=== PATIENT | male | born 1950 | race Caucasian/White ===

== ENCOUNTER 2017-08-15 21:19 | Emergency (ER) | payer MEDICARE ==
[2017-08-16] MEDS: DOXYCYCLINE HYCLATE 100 MG TAB PO (02:22)
== END 2017-08-16 02:33 | disposition home or self-care (01) ==
LOC: M ED 21:19
DX: J18.1 Lobar pneumonia, unspecified organism (principal); E11.9 Type 2 diabetes mellitus without complications; I10 Essential (primary) hypertension; E78.5 Hyperlipidemia, unspecified; G47.30 Sleep apnea, unspecified; K21.9 Gastro-esophageal reflux disease without esophagitis; F32.9 Major depressive disorder, single episode, unspecified; Z79.899 Other long term (current) drug therapy
CPT/HCPCS: 71046

== ENCOUNTER 2018-08-17 13:28 | Emergency (ER) | payer OTHER, MEDICARE ==
[~2018-08-17] VITALS: Ht 162.6 cm; Wt 106.8 kg
[~2018-08-17 13:28] MED LIST: DICY10CA13 PO; DOXY100C37 PO
--- NOTE | 2018-08-17 15:14 | REP ---
Clinical: Cough . Comparison: 08/16/2017 . Technique: PA and lateral. Findings: The mediastinum and cardiac silhouette are normal. The lung walker are clear and without acute consolidation, effusion, or pneumothorax. The skeletal structures are intact and normal. Impression: 1. No acute cardiopulmonary process. Electronically Signed by Toby Del Valle MD 08/17/2018 03:05 P
[2018-08-17] MEDS ORDERED: OMEP20CA3 PO (15:43)
[2018-08-17] MEDS ORDERED: BACI500O8 TOP (15:43)
[2018-08-17] MEDS ORDERED: ASPI1TAB PO (15:43)
[2018-08-17] MEDS ORDERED: LISI-542 PO (15:43)
[2018-08-17] MEDS ORDERED: AQUA10CR TOP (15:43)
[2018-08-17] MEDS ORDERED: CLOB0.0526 TOP (15:43)
[2018-08-17] MEDS ORDERED: METF10004 PO (15:43)
[2018-08-17] MEDS ORDERED: METO1TAB87 PO (15:43)
[2018-08-17] MEDS ORDERED: GLIP5TAB8 PO (15:43)
[2018-08-17] MEDS ORDERED: NAPR-885 PO (15:43)
[2018-08-17] MEDS ORDERED: FISH1000 PO (15:43)
[2018-08-17] MEDS ORDERED: GENT0.1C2 TOP (15:43)
[2018-08-17] MEDS ORDERED: TERA5CAP3 PO (15:43)
[2018-08-17] MEDS ORDERED: TRAZ-163 PO (15:43)
[2018-08-17] MEDS ORDERED: HYDR25TAB PO (15:43)
[2018-08-17] MEDS ORDERED: DRIS50003 PO (15:43)
[2018-08-17] MEDS ORDERED: TERB1CRE12 TOP (15:43)
[2018-08-17] MEDS ORDERED: ROSU40TA3 PO (15:43)
[2018-08-17] MEDS ORDERED: LORA-243 PO (15:43)
[2018-08-17 16:07] LABS: INFLUENZA A AMPLIFICATION POSITIVE (NEGATIVE); INFLUENZA B AMPLIFICATION NEGATIVE (NEGATIVE)
[2018-08-17] MEDS ORDERED: TESS100C PO (16:19)
[2018-08-17] MEDS ORDERED: FLON27.5 NARES (16:19)
[2018-08-17 16:21] VITALS: BP 130/60
== END 2018-08-17 16:35 | disposition home or self-care (01) ==
LOC: M ED 13:28
DX: J09.X2 Influenza due to identified novel influenza A virus with other respiratory manifestations (principal); I10 Essential (primary) hypertension; E11.9 Type 2 diabetes mellitus without complications; E78.5 Hyperlipidemia, unspecified; G47.33 Obstructive sleep apnea (adult) (pediatric); K21.9 Gastro-esophageal reflux disease without esophagitis; F32.9 Major depressive disorder, single episode, unspecified; Z79.899 Other long term (current) drug therapy; Z79.2 Long term (current) use of antibiotics; Z79.82 Long term (current) use of aspirin; Z79.84 Long term (current) use of oral hypoglycemic drugs; Z79.1 Long term (current) use of non-steroidal anti-inflammatories (NSAID)

== ENCOUNTER 2018-08-20 18:04 | Emergency (ER) | payer MEDICARE, OTHER ==
[~2018-08-20] VITALS: Ht 162.6 cm; Wt 106.8 kg
[~2018-08-20 18:04] MED LIST changes: +AQUA10CR TOP; +ASPI1TAB PO; +BACI500O8 TOP; +CLOB0.0526 TOP; +DRIS50003 PO; +FISH1000 PO; +FLON27.5 NARES; +GENT0.1C2 TOP; +GLIP5TAB8 PO; +HYDR25TAB PO; +LISI-542 PO; +LORA-243 PO; +METF10004 PO; +METO1TAB87 PO; +NAPR-885 PO; +OMEP20CA3 PO; +ROSU40TA3 PO; +TERA5CAP3 PO; +TERB1CRE12 TOP; +TESS100C PO; +TRAZ-163 PO
[2018-08-20] MEDS ORDERED: IPRATROPIUM 0.5MG/ALBUTEROL 2.5MG INH SOL UD 3ML (DUONEB)(J7620) NEB ONE (19:15)
[2018-08-20] MEDS ORDERED: NS 1,000 ML IV ONE (19:15)
[2018-08-20 19:29] LABS: BASO % 0.6 % (0.0-1.0); EOS # 0.3 10^3/uL (0.0-0.50); EOS % 4.2 % (0.0-3.0); HEMATOCRIT 38.1 % (42.0-52.0); LYMPH # 2.4 10^3/uL (1.5-4.5); LYMPH % 34.2 % (24.0-44.0); MEAN CORPUSCULAR HEMOGLOBIN 29.2 pg (27.0-33.0); MEAN CORPUSCULAR HGB CONC 34.1 g/dl (32.0-36.5); MEAN CORPUSCULAR VOLUME 85.6 fl (80.0-96.0); MONO # 0.7 10^3/uL (0.0-0.8); MONO % 10.1 % (0.0-5.0); NEUTROPHILS # 3.6 10^3/uL (1.8-7.7); NEUTROPHILS % 50.6 % (36.0-66.0); PLATELET COUNT, AUTOMATED 206 10^3/uL (150-450); RED BLOOD COUNT 4.45 10^6/uL (4.30-6.10); WHITE BLOOD COUNT 7.1 10^3/uL (4.0-10.0)
[2018-08-20 20:34] LABS: ALBUMIN 3.3 GM/DL (3.2-5.2); ALT/SGPT 35 U/L (12-78); BILIRUBIN,DIRECT 0.2 MG/DL (0.0-0.2); BILIRUBIN,TOTAL 0.4 MG/DL (0.2-1.0); BLOOD UREA NITROGEN 11 MG/DL (7-18); CALCIUM LEVEL 7.8 MG/DL (8.8-10.2); CARBON DIOXIDE LEVEL 26 MEQ/L (21-32); CHLORIDE LEVEL 105 MEQ/L (98-107); CPK CREATINE PHOSPHOKINASE 249 U/L (39-308); CREATININE FOR GFR 0.96 MG/DL (0.70-1.30); GLOMERULAR FILTRATION RATE > 60.0 (>49); GLUCOSE, FASTING 206 MG/DL (70-100); MB/CK RELATIVE INDEX 1.45 (< OR =4); NT-PRO BNP 591 PG/ML (<125); POTASSIUM SERUM 3.9 MEQ/L (3.5-5.1); SODIUM LEVEL 140 MEQ/L (136-145); TOTAL PROTEIN 6.5 GM/DL (6.4-8.2); TROPONIN I 0.06 NG/ML (< 0.10)
[2018-08-20] MEDS ORDERED: METOPROLOL TART 25 MG TABLET PO ONE (21:30)
[2018-08-20] MEDS ORDERED: FLECAINIDE 50MG TABLET PO ONE (21:30)
[2018-08-20 21:45] LABS: FREE T4 1.52 NG/DL (0.76-1.46)
[2018-08-21 00:07] LABS: ABG BASE EXCESS -2.3 (-2.0-2.0); ABG HCO3 21.2 MEQ/L (22.0-26.0); ABG O2 SATURATION 96.5 % (95.0-99.0); ABG PARTIAL PRESSURE O2 93.1 mmHg (75.0-100.0); ABG STANDARD HCO3 22.6 MEQ/L (22.0-26.0); ABG TOTAL CO2 22.2 MEQ/L (23.0-31.0); ABG pH (ARTERIAL) 7.425 UNITS (7.350-7.450)
[2018-08-21 01:23] LABS: MB/CK RELATIVE INDEX 1.38 (< OR =4); TROPONIN I 0.06 NG/ML (< 0.10)
[2018-08-21] MEDS ORDERED: FLEC50HA PO (01:34)
[2018-08-21 01:43] VITALS: BP 135/63
--- NOTE | 2018-08-21 09:30 | REP ---
Clinical: Shortness of breath and atrial fibrillation . Comparison: 08/17/2018 . Technique: PA and lateral. Findings: The mediastinum and cardiac silhouette are normal. The lung walker are clear and without acute consolidation, effusion, or pneumothorax. The skeletal structures are intact and normal. Impression: 1. No acute cardiopulmonary process. Electronically Signed by Toby Del Valle MD 08/21/2018 09:21 A
--- NOTE | 2018-08-21 18:28 | ECGEPIP ---
Stationary ECG Study [facility] - ED Test Date: 2018-08-20 Pat Name: AARON WONG Department: Room: - Gender: M Ecologist: SOWMYA : 1950 Requested By: JOSUE WARREN PA-C Order Number: [id number] Reading MD: Mikhail Urias Measurements Intervals [place] Rate: 121 P: [place]: 0 QRS: 23 QRSD: 130 T: 188 QT: 337 QTc: 480 Interpretive Statements ATRIAL FIBRILLATION WITH RAPID VENTRICULAR RESPONSE LEFT BUNDLE BRANCH BLOCK CW 06/04/16 RATE INCREASED RHYTHM CHANGE CLINICAL CORRELATION ADVISED Electronically Signed On 08-21-2018 18:27:56 EST by Mikhail Urias
--- NOTE | 2018-08-21 19:09 | ECGEPIP ---
Stationary ECG Study [facility] - ED Test Date: 2018-08-20 Pat Name: AARON WONG Department: Room: - Gender: M Kiln Stoker: carlitos : 1950 Requested By: JOSUE WARREN PA-C Order Number: [id number] Reading MD: Mikhail Urias Measurements Intervals [place] Rate: 119 P: AR: 0 QRS: 8 QRSD: 134 T: 162 QT: 337 QTc: 475 Interpretive Statements ATRIAL FIBRILLATION WITH RAPID VENTRICULAR RESPONSE LEFT BUNDLE BRANCH BLOCK CW 08/20/18 RATE DECREASED Electronically Signed On 08-21-2018 19:08:56 EST by Mikhail Urias
--- NOTE | 2018-08-21 19:10 | ECGEPIP ---
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
== END 2018-08-21 01:50 | disposition home or self-care (01) ==
LOC: M ED 18:04
DX: J09.X2 Influenza due to identified novel influenza A virus with other respiratory manifestations (principal); I48.91 Unspecified atrial fibrillation; E11.9 Type 2 diabetes mellitus without complications; I10 Essential (primary) hypertension; F33.9 Major depressive disorder, recurrent, unspecified; K21.9 Gastro-esophageal reflux disease without esophagitis; G47.33 Obstructive sleep apnea (adult) (pediatric); Z79.82 Long term (current) use of aspirin

== ENCOUNTER 2018-09-03 14:43 | Inpatient (IN) | payer OTHER, MEDICARE ==
[~2018-09-03] VITALS: Ht 162.6 cm; Wt 106.2 kg
[~2018-09-03 14:43] MED LIST changes: +FLEC50HA PO
[2018-09-03 16:01] LABS: BASO # 0.1 10^3/uL (0.0-0.2); BASO % 0.8 % (0.0-1.0); EOS # 0.1 10^3/uL (0.0-0.50); EOS % 1.4 % (0.0-3.0); HEMATOCRIT 40.8 % (42.0-52.0); HEMOGLOBIN 13.9 g/dl (13.5-17.5); LYMPH # 2.7 10^3/uL (1.5-4.5); LYMPH % 29.6 % (24.0-44.0); MEAN CORPUSCULAR HEMOGLOBIN 29.5 pg (27.0-33.0); MEAN CORPUSCULAR HGB CONC 34.1 g/dl (32.0-36.5); MEAN CORPUSCULAR VOLUME 86.6 fl (80.0-96.0); MONO # 0.9 10^3/uL (0.0-0.8); MONO % 9.6 % (0.0-5.0); NEUTROPHILS # 5.4 10^3/uL (1.8-7.7); NEUTROPHILS % 58.4 % (36.0-66.0); PLATELET COUNT, AUTOMATED 316 10^3/uL (150-450); RED BLOOD COUNT 4.71 10^6/uL (4.30-6.10); WHITE BLOOD COUNT 9.2 10^3/uL (4.0-10.0)
[2018-09-03 16:19] LABS: BLOOD UREA NITROGEN 10 MG/DL (7-18); CALCIUM LEVEL 8.6 MG/DL (8.8-10.2); CARBON DIOXIDE LEVEL 30 MEQ/L (21-32); CHLORIDE LEVEL 103 MEQ/L (98-107); CPK CREATINE PHOSPHOKINASE 142 U/L (39-308); CREATININE FOR GFR 0.84 MG/DL (0.70-1.30); GLOMERULAR FILTRATION RATE > 60.0 (>49); GLUCOSE, FASTING 118 MG/DL (70-100); MB/CK RELATIVE INDEX 2.46 (< OR =4); NT-PRO BNP 748 PG/ML (<125); POTASSIUM SERUM 4.4 MEQ/L (3.5-5.1); SODIUM LEVEL 137 MEQ/L (136-145); THYROID STIMULATING HORMONE 0.557 uIU/ML (0.358-3.740); TROPONIN I 0.07 NG/ML (< 0.10)
[2018-09-03 16:20] LABS: INR 1.24; PROTHROMBIN TIME 15.8 SECONDS (12.1-14.4)
[2018-09-03 16:21] LABS: PARTIAL THROMBOPLASTIN TIME 38.3 SECONDS (25.4-37.6)
--- NOTE | 2018-09-03 16:29 | REP ---
Chest one-view HISTORY: Chest pain Comparison: 08/20/2018 The lungs are clear. The heart is normal in size. The pulmonary vasculature is normal in appearance. Impression: No acute disease. Electronically Signed by Steve Murcia MD 09/03/2018 04:20 P
[2018-09-03] MEDS ORDERED: ALBUTEROL SULFATE 2.5 MG/0.5 ML INH NEB SOLN NEB ONE (17:45)
[2018-09-03] MEDS ORDERED: methylPREDNISolone INJ 125 MG/2 ML VIAL (J2930) IV ONE ×2 (17:45→18:00)
[2018-09-03] MEDS ORDERED: fentaNYL 100 MCG/2 ML INJECTION (J3010) As Ordered ONE (17:50)
[2018-09-03] MEDS ORDERED: PROPOFOL 200 MG/20 ML VIAL As Ordered ONE (17:50)
[2018-09-03] MEDS ORDERED: LIDOCAINE 2% INJ 100 MG/5 ML SDV (FOR ANES.) As Ordered ONE (17:50)
[2018-09-03] MEDS ORDERED: MIDAZOLAM INJ 2 MG/2 ML VIAL (J2250) As Ordered ONE (17:50)
[2018-09-03] MEDS ORDERED: METF10004 PO (17:52)
[2018-09-03] MEDS ORDERED: VITA50005 PO (17:52)
[2018-09-03] MEDS ORDERED: CLOB5CR TOP (17:52)
[2018-09-03] MEDS ORDERED: UREA39CR TOP (17:52)
[2018-09-03] MEDS ORDERED: TERA5CAP3 PO (17:52)
[2018-09-03] MEDS ORDERED: NAPR-885 PO (17:52)
[2018-09-03] MEDS ORDERED: HYDR25TAB PO (17:52)
[2018-09-03] MEDS ORDERED: TRAZ-163 PO (17:52)
[2018-09-03] MEDS ORDERED: LORA-243 PO (17:52)
[2018-09-03] MEDS ORDERED: OMEP20CA3 PO (17:52)
[2018-09-03] MEDS ORDERED: LISI-542 PO (17:52)
[2018-09-03] MEDS ORDERED: BACI50OI TOP (17:52)
[2018-09-03] MEDS ORDERED: CRES40TA PO (17:52)
[2018-09-03] MEDS ORDERED: METO25TA4 PO (17:52)
[2018-09-03] MEDS ORDERED: FISH7.5C PO (17:52)
[2018-09-03] MEDS ORDERED: ASPI1TAB PO (17:52)
[2018-09-03] MEDS ORDERED: GLIP5TAB8 PO (17:52)
[2018-09-03] MEDS: NS 1,000 ML IV SCH (18:10)
[2018-09-03] MEDS ORDERED: LIDOCAINE 1% SDV INJ 30 ML VIAL As Ordered ONE (18:16)
[2018-09-03] MEDS ORDERED: ceFAZolin 2 GM/D5W 50 ML IV BAG (J0690 PER 500MG) As Ordered ONE (19:03)
[2018-09-03] MEDS: AMIODARONE HCL 360 MG/200 ML PREMIXED BAG (NEXTERONE) As Ordered ONE ×2 (19:28→20:20)
--- NOTE | 2018-09-03 19:38 | CR ---
DATE OF CONSULTATION: 09/03/2018 EMERGENCY ROOM CARDIOLOGY CONSULTATION INDICATION: Recurrent near syncope with paroxysmal atrial fibrillation with rapid ventricular response alternating with asystolic pauses. HISTORY: This 67-year-old father of three grown children, disabled (depression) since 2001, resident of [place], [place] is customarily followed by the [facility] for combination medical problems including obesity, hypertension, and type 2 diabetes mellitus. Claims customarily to feel unrestricted helping his girlfriend to vacuuming and housework and shopping, ultimately limited by shortness of breath. Does not perform any exercise for exercise sake. For the past several weeks, he reports having episodes of near syncope and has presented to [facility] and [facility] emergency rooms (ERs) for similar complaints. He has also been diagnosed with influenza with persistent cough productive of whitish sputum and some shortness of breath. Has been known to have an abnormal EKG, he claims. August 23, 2018 was transferred from [facility] with new onset atrial fibrillation with rapid ventricular response. He was transferred to the [facility] and was found to have atrial fibrillation with rapid ventricular sponsor averaging approximately 150 beats per minute (bpm). The patient was observed to go in and out of atrial fibrillation, although only kept on metoprolol 25 mg twice a day with Eliquis oral anticoagulation. At that time, his BNP level was elevated at 454. Troponin I level was marginally increased suggestive of demand ischemia rather than acute coronary syndrome. An echocardiogram/Doppler study was performed which proved to be technically difficult, but his left ventricle was at least mildly hypertrophied with "low normal" systolic function with ejection fraction 50-55%. Other cardiac chamber sizes were felt possibly to be normal, valvular structures appeared and functioned normally, was not believed to have had pulmonary hypertension or pericardial effusion. Discharged August 25, 2018. He presented to our emergency room earlier today with again recurrent episodes of near syncope and collapse since getting up this morning; the patient claims he would come on and off for hours. Upon arriving at [facility] this afternoon at 2:30 p.m., on panel monitor would alternate between atrial fibrillation with rapid ventricular response despite his metoprolol and then subsequently having conversion to sinus mechanism but having obvious 4 to 5 second asystolic pauses that were quite symptomatic. In light of these recurrent episodes, my cardiology service was consulted. OTHER CARDINAL CARDIAC SYMPTOMS: The patient denies any history of effort related chest, jaw or arm discomforts despite his multiple coronary risk factors. Has a known abnormal EKG with left bundle branch block and claims to have had a remote treadmill study that was OK. History of gastroesophageal reflux on proton pump inhibitor therapy but no recent gastrointestinal (GI) upset or bleeding. Has been exposed to secondhand smoke on and off most of his life and has a history of chronic sinus problems and intermittent bronchitis. As mentioned, recent influenza with purulent bronchitis, recently given antibiotic therapy. Denies hemoptysis. Longstanding weight problem (having weighed 120 pounds at age 20; maximum weight 255 pounds 3-4 years ago; his weight the past year has been stable at 240 pounds). Admits to having effort dyspnea with more than gentle activities. At least a 5-year history of obstructive sleep apnea, on continuous positive airway pressure (CPAP) therapy, followed by the [facility] in [place]. Nocturia times two is chronic. Denies orthopnea until recently; the past night he was up at least three or four times because of shortness of breath and a choking sensation that appears to correlate with his asystolic pauses observed here in our emergency room. Treated hypertension for at least the past 10-12 years with no recent change in his antihypertensive therapy. He is unaware of his recent echocardiogram showing cardiomegaly. No history of rheumatic fever or heart murmur. The patient is only aware of palpitations when he is stressed or anxious. Interestingly, here in our emergency room has not been aware of his rapid heart action with his atrial fibrillation and rapid ventricular response but does become dyspneic with his tachyarrhythmia. Documented atrial fibrillation, as mentioned. No family history of premature sudden cardiac or congenital deafness. Drinks only two cups of caffeinated coffee daily. Rare soda or alcoholic beverage. No known thyroid dysfunction. Nonsmoker and does not use xwnx-imb-iqgxesi decongestants, pep pills or diet pills. Recurrent near syncopal episodes but has actually not fallen or lost consciousness. Denies a history of transient lateralizing neurological deficit, flank pain, hematuria or blue toe syndrome. Occasional leg cramps but no history of varicose veins, phlebitis or apparent ankle swelling. CORONARY RISK FACTORS: Advanced age. Male gender. Hypertension. Obesity. Hypercholesterolemia. Type 2 diabetes mellitus. No history of smoking. No family history of premature coronary heart disease. SYSTEMS REVIEW: Recent fever, chills and cough related to his influenza and bronchitis. Currently is feeling better with less fever and his breathing had improved until recurrent bouts of atrial fibrillation today. Has residual fatigue. Wears corrective lenses. No glaucoma or diabetic retinopathy. Edentulous but does not wear his dentures because of cleft palate. Denies any regular GI problems on omeprazole but with his bouts of near syncope did have some loose bowel movement earlier today. No history of GI bleeding. History of prostatism but unaware of any renal problems, hematuria or insufficiency. Has some chronic low back pain and right knee arthralgia. Rash - Lichen Planus. No lumps or bumps. No known allergies. History of depression, as mentioned above. 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 Obesity, obstructive sleep apnea, proteinuria related to his diabetes mellitus, but no neuropathy or retinopathy. Degenerative joint disease. Moderately severe depression. Lactose intolerance. ALLERGIES: On his [facility] discharge summary August 25, 2018, PENICILLIN is listed but the patient cannot recall precisely. MEDICATIONS: Current home medications include Eliquis 5 mg twice a day, metoprolol tartrate to 25 mg twice a day, lisinopril 5 mg tablets 1/2 tablet daily, Crestor 40 mg nightly, terazosin 5 mg nightly, trazodone 100 mg nightly, cefpodoxime 200 mg tablet every 12 hours - this has recently been completed, benzonatate 200 mg capsules one tablet three times a day for cough, bacitracin ointment to left big toe daily, clobetasol propionate 0.05% cream applied moderately to rash twice a day, doxycycline 100 mg tablets one tablet twice a day is completed. Vitamin D2 50,000 units one capsule every two weeks, fish oil 1 gram daily, glipizide 5 mg daily, loratadine 10 mg daily, metformin 1 gram twice a day, omeprazole 20 mg by mouth daily. PHYSICAL EXAMINATION: Constitutional: Obese, barrel-chested, late middle-aged male, somewhat dyspneic when attempted to lie flat. Comfortable sitting or lying with the head of bed elevated 30 degrees. No obvious distress. Vital signs: Current heart rate 72 beats per minute and regular, blood pressure 136/71 supine, dropping to 126/65 sitting with legs dependent, respiratory rate 18, oxygen saturation 99% on room air. He is afebrile. Weight 235 pounds, height 5 feet 4 inches. Eyes: Normal conjunctivae and lids. No xanthelasma. ENT/Mouth: Cleft palate. Edentulous. Normal oral moisture. No central cyanosis. Neck: Trachea midline. Thyroid not enlarged. Jugular veins did not appear to be elevated. Respiratory: Increased anteroposterior chest diameter with slightly reduced chest excursion. Good air entry with no current inspiratory rales but obvious diffuse expiratory rhonchi. Cardiovascular: Apical impulse was not palpable. Heart sounds quite distant. No audible gallop or murmur. Normal carotid upstrokes and volume with no bruits. Upper extremity and femoral pulses were symmetrical and normal. Pedal pulses were somewhat difficult palpate because of distal lower leg pitting edema one-third up both lower legs. His abdominal aorta was not palpable because of obesity. No abdominal bruits. No obvious varicose veins. Extremities: No clubbing, peripheral cyanosis or splinter hemorrhages. GI: Protuberant, soft, obese abdomen with no apparent hepatosplenomegaly. Normal bowel sounds. Rectal examination not indicated. Musculoskeletal: No obvious joint deformities. Normal appearing muscular strength and tone. Normal spine curvature. Skin: No obvious rashes, lumps or bumps. No icterus or pallor. Neuro/psych: Bright, alert and oriented. Edentulous with cleft palate. His speech is somewhat difficult to understand. Normal appearing muscular strength and tone. No abnormal movements. INVESTIGATIONS: Portable upright chest x-ray taken earlier today was reviewed independently. This shows heart size at least borderline increased, slightly unfolded thoracic aorta. Somewhat prominent proximal pulmonary vessels but no obvious pulmonary venous congestion, infiltrate or pleural effusion. Normal appearing bony structures. EKGS: Tracing from August 20, 2018 showed sinus rhythm at 69 bpm. Left atrial conduction disturbance. Leftward axis with left bundle branch block configuration. Tracing done today at 3:02 p.m. showed underlying atrial fibrillation with controlled ventricular response averaging 93 bpm, left bundle branch block as before. Ambulance run strips showed ventricular responses up to 140 bpm. Emergency room telemetry strips showed conversion repeatedly to sinus rhythm but only after 5-second pauses that were quite symptomatic. BLOOD WORK: Blood work today shows a hemoglobin of 13.9. Normal white blood cell count and platelet count. PT/INR 15.8/1.24, PTT 38. Electrolytes were normal BUN 10, creatinine 0.84, random glucose 118. His total CPK was normal. Troponin I level was marginally elevated at 0.07. Pro BNP level was elevated at 748. Ultrasensitive TSH was normal at 0.56. 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 There does not appear to be any clear-cut reversible factor. In light of the patient's symptoms, we recommended prompt implantation of a permanent dual-chamber pacemaker under monitored local anesthesia as soon as we can arrange this. The patient has not eaten since 10 this morning. The indication, procedure and potential risks were discussed with the patient who appears to understand and agrees. 2. Paroxysmal atrial fibrillation with rapid ventricular response: Undoubtedly related to his longstanding obesity and hypertension. Has recent echocardiographic and chest x-ray evidence of left ventricular hypertrophy. Recent echocardiogram was technically difficult but reports a left atrium that appeared to be normal. I doubt this in light of his elevated BNP level; he likely does have chronic elevated BNP level, and his EKG showing a left atrial conduction disturbance. At this point, his low dose beta jaylen therapy is not preventing his rapid ventricular responses. Once his permanent dual-chamber pacemaker is implanted, it will be safe to administer additional negative chronotropic therapy. Temporarily his oral anticoagulation will be placed on hold. 3. Heart failure (diastolic dysfunction/acute on chronic): As suggested, I believe this fellow has had a degree of left ventricular diastolic dysfunction for some time related to his chronic obesity and hypertension. Recent effort dyspnea and elevated BNP level triggered by his recurrent bouts of rapid atrial fibrillation. Obviously he will be placed on a modest salt and fluid intake restriction. In preparation for his surgery, we will not administer diuretic therapy as his oxygen (O2) saturation on room air appears adequate. Does have orthopnea, as mentioned. Postoperative we will administer loop diuretic intravenously. Preventing his paroxysmal atrial fibrillation/rapid ventricular responses would be considered a jenkins measure to reduce the mean left atrial pressure. 4. Abnormal EKG/left bundle branch block: Degenerative conduction tissue disease, likely triggered by his chronic hypertension and age. This is likely the reason for his sinus node dysfunction and tachy-ethan syndrome. Has an indeterminate troponin I level. Similar to that previously documented at the [facility]. As mentioned, jenkins measure would be prevention of his atrial tachyarrhythmia with rapid ventricular response. We will obtain followup EKGs and cardiac enzymes. It would be prudent to obtain a followup evaluation of his coronary prognosis. We will discuss obtaining a regadenoson Cardiolite heart scan as an outpatient in the near future. (Regadenoson study in light of his left bundle branch block). 5. Hypertensive heart disease (benign with heart failure): Current blood pressure is adequately controlled on his low dose metoprolol and lisinopril. With his diabetes, we would hope to continue at least low dose angiotensin-converting enzyme (ROOSEVELT) inhibition for renal protection with his history of proteinuria. We may have to consider the use of digoxin if his blood pressure does not tolerate additional beta blockade. I have discussed these opinions with the patient who appears to understand and agrees. Further investigations and treatment will depend on his response to these initial measures. RHYSD
[2018-09-03] MEDS ORDERED: AMIODARONE 150MG/3ML INJ (J0282) As Ordered ONE ×2 (19:46→20:06)
[2018-09-03] MEDS ORDERED: AMIODARONE HCL 150 MG/100 ML PREMIXED BAG (NEXTERONE) As Ordered ONE (20:02)
[2018-09-03] MEDS ORDERED: BACITRACIN OINT 30GM As Ordered ONE (20:45)
--- NOTE | 2018-09-03 20:52 | ECGEPIP ---
Stationary ECG Study [facility] - ED Test Date: 2018-09-03 Pat Name: AARON WNOG Department: Room: - Gender: M Campus Security Director: agustina : 1950 Requested By: Rocco Adler Order Number: [id number] Reading MD: Rocco Morin Measurements Intervals [place] Rate: 93 P: MA: 0 QRS: 29 QRSD: 136 T: 141 QT: 383 QTc: 479 Interpretive Statements ATRIAL FIBRILLATION LEFT BUNDLE BRANCH BLOCK RHYTHM CHANGE COMPARED TO 08/20/18 Electronically Signed On 09-03-2018 20:52:28 EDT by Rocco Morin
[2018-09-03] MEDS: TERAZOSIN 5 MG CAP PO SCH (21:00)
[2018-09-03] MEDS ORDERED: PERCOCET 5MG/325MG TAB PO PRN (21:00)
[2018-09-03] MEDS: HumaLOG INSULIN (NovoLOG) PER UNIT SC SCH (21:00)
[2018-09-03] MEDS ORDERED: ACETAMINOPHEN TAB 650MG DOSE (2X325MG) PO PRN (21:00)
[2018-09-03] MEDS: METOPROLOL TART 25 MG TABLET PO SCH (21:00)
[2018-09-03] MEDS ORDERED: ALBUTEROL SULFATE 2.5 MG/0.5 ML INH NEB SOLN INH PRN (21:15)
[2018-09-03 21:50] VITALS: BP 147/72
--- NOTE | 2018-09-03 22:07 | RO ---
DATE OF PROCEDURE: 09/03/2018 PREOPERATIVE DIAGNOSES: 1. Tachy-ethan syndrome - recurrent cardiac asystole with near syncope. 2. Paroxysmal atrial fibrillation with rapid ventricular response. 3. Abnormal EKG/left bundle branch block. POSTOPERATIVE DIAGNOSES: 1. Tachy-ethan syndrome - recurrent cardiac asystole with near syncope. 2. Paroxysmal atrial fibrillation with rapid ventricular response. 3. Abnormal EKG/left bundle branch block. PROCEDURE: 1. Implantation of permanent dual-chamber pacemaker. 2. Direct current cardioversion for recurrent atrial fibrillation. SURGEON/IMPLANTING HERBARIUM CURATOR: Dr. Jonh Chadwick ANESTHESIOLOGIST: Dr. Naik TYPE OF ANESTHESIA: Monitored local anesthesia. DESCRIPTION OF PROCEDURE: With the patient in the fasting state, having received informed consent, he received Ancef 2 grams IV premedication and was taken to the operating theater. Numerous skin electrodes were applied to facilitate continuous electrocardiographic monitoring. Self-adhesive cardioverting/defibrillating pads were applied in an anteroposterior configuration and connected to a bedside cardioverter defibrillator. The left subclavian region was prepped and draped in the usual fashion and the skin was infiltrated with 1% Xylocaine. The left axillary vein was catheterized using the micropuncture technique. A 5 cm linear incision was made several centimeters below and parallel to the left clavicle. Dissection was carried down to the level of the pectoralis fascia, and a pocket was fashioned below the level of the incision line. Two bipolar screw-in active fixation steroid-eluting pacing leads were then positioned to the right ventricular apex and high right atrial appendage under fluoroscopic and electrocardiographic control. The right ventricular lead ([employer], model number [id number], serial number [id number]) measurements were: Stimulation threshold 0.7 V/0.4 ms/impedance 842 ohms. The R wave amplitude measured 32 mV. Unfortunately, the patient developed recurrent atrial fibrillation with rapid ventricular response after his right atrial lead was positioned. At this point, we administered amiodarone 150 mg by IV infusion over 10 minutes. Unfortunately, this did not convert his rhythm, so he was given IV sedation and once his consciousness was blunted, a single direct current cardioversion was administered using 200 joules. He briefly did terminate his atrial fibrillation again with a long pause, but before we were able to test his atrial lead, he went back into atrial fibrillation. An additional amiodarone 150 mg was administered by IV infusion over 10 minutes. Again this was not successful in terminating his atrial fibrillation, so a second direct current cardioversion of 200 joules was administered. On this occasion, he remained in an atrially paced rhythm at 70 beats per minute. We were then able to proceed with atrial lead testing. His right atrial lead ([employer], model number [id number], serial number [id number]) measurements were: 1.5 V/0.4 ms/impedance 524 ohms. The P wave measured 1.7 mV. These leads were then secured in position with sleeves sutured at the insertion site. They were then connected to a dual-chamber pulse generator ([employer] [facility], MRI compatible, model number [id number], serial number [id number]) and appropriate DDD pacing was documented. The device was then placed in the pocket and secured in position with a suture through the upper right-hand corner of the epoxy header. The subcutaneous tissues were approximated using a running chromic suture, and the skin was closed using quita. A dry dressing was applied, and the patient was returned to the recovery room in good condition. Despite his Eliquis, estimated blood loss was less than 30 mL. No apparent complications. Postoperative device testing showed excellent intracardiac electrograms and pacing thresholds improved from the operating room. His postoperative portable upright chest x-ray showed good lead position with no pneumothorax. His EKG confirmed consistent atrially paced rhythm at 80 bpm (program rate) with spontaneous AV conduction and sycuan left bundle branch block configuration. At this point, the patient will be monitored on telemetry. We have elected to at least temporarily start him on amiodarone 200 mg four times a day in order to preserve his organized atrial mechanism. He will continue on his metoprolol tartrate 25 mg twice a day. His Eliquis will be resumed September 05, 2018. We are cautiously optimistic we will be able to send him home later on tomorrow. VERNON
[2018-09-03] MEDS: ROSUVASTATIN 10 MG TAB (CRESTOR) PO SCH (22:19)
[2018-09-03] MEDS: traZODone 100 MG TAB PO SCH (22:19)
[2018-09-03] MEDS: DOCUSATE SODIUM 100 MG CAP PO SCH (22:19)
[2018-09-03 22:20] VITALS: BP 130/60
[2018-09-03] MEDS ORDERED: GLUCAGON FOR INJ 1 MG VIAL (J1610) SC PRN (23:30)
[2018-09-03] MEDS ORDERED: DEXTROSE 50% 50 ML SYRINGE IV PRN (23:30)
[2018-09-03] MEDS ORDERED: GLUCOSE 4 GM CHEW TABLET PO PRN (23:30)
[2018-09-03 23:59] VITALS: BP 136/68
[2018-09-04] MEDS: ceFAZolin SOD 1 GM in D5W MINI-BAG PLUS 50 ML IV SCH ×3 (03:06→18:05)
[2018-09-04 04:00] VITALS: BP 126/60
[2018-09-04] MEDS: ALBUTEROL SULFATE 2.5 MG/0.5 ML INH NEB SOLN INH SCH ×6 (04:00→20:38)
[2018-09-04] MEDS: HumaLOG INSULIN (NovoLOG) PER UNIT SC SCH ×4 (07:30→20:32)
[2018-09-04] MEDS ORDERED: glyBURIDE 2.5 MG TAB PO SCH (07:30)
[2018-09-04 08:00] VITALS: BP 129/58
--- NOTE | 2018-09-04 08:11 | REP ---
PA and lateral chest: Comparison is the portable chest of 09/03/2018. There is a dual-chamber pacemaker with skin quiat adjacent to the pacemaker generator, unchanged. There is no pneumothorax or hemothorax. Lung walker are clear. Cardiac size upper normal. The cristal, mediastinum, skeletal structures are unchanged. Impression: There is no interval change. Electronically Signed by Massimo Howell MD 09/04/2018 08:03 A
--- NOTE | 2018-09-04 08:20 | REP ---
Chest one-view HISTORY: Pacemaker insertion Comparison: 04:00 p.m. 09/03/2018 The lungs are clear. The heart is normal in size. The pulmonary vasculature is normal in appearance. A cardiac pacemaker is present. Surgical quiat are present overlying the left upper hemithorax. Impression: No acute disease. Electronically Signed by Steve Murcia MD 09/04/2018 08:13 A
[2018-09-04] MEDS: glipiZIDE (GLUCOTROL) 5 MG TAB PO SCH (08:42)
[2018-09-04] MEDS: LORATADINE 10 MG TAB PO SCH (08:43)
[2018-09-04] MEDS: PANTOPRAZOLE 40MG TAB (PROTONIX) PO SCH (08:43)
[2018-09-04] MEDS: metFORMIN (GLUCOPHAGE) 1000 MG TABLET PO SCH ×2 (08:43→17:17)
[2018-09-04] MEDS: DOCUSATE SODIUM 100 MG CAP PO SCH ×2 (08:43→20:47)
[2018-09-04] MEDS: AMIODARONE 200 MG TAB (PACERONE) PO SCH ×4 (08:43→20:48)
[2018-09-04] MEDS: METOPROLOL TART 25 MG TABLET PO SCH ×2 (08:44→20:48)
[2018-09-04] MEDS: PREVNAR 13 VACCINE SYRINGE (CPT CODE:90670) IM ONE ×2 (08:46→12:10)
[2018-09-04 12:00] VITALS: BP 138/62
[2018-09-04] MEDS: NS 1,000 ML IV SCH (12:09)
--- NOTE | 2018-09-04 13:38 | ECGEPIP ---
Stationary ECG Study [facility] Test Date: 2018-09-03 Pat Name: AARON WONG Department: Room: [place] [address] Gender: M Punch Card Operator: : 1950 Requested By: Jonh Chadwick Order Number: [id number] Reading MD: Francis Bowman Measurements Intervals [place] Rate: 80 P: 139 MA: 202 QRS: 13 QRSD: 121 T: 140 QT: 401 QTc: 463 Interpretive Statements Mostly atrial pacing Left bundle branch block Atrial pacemaker activity is new since prior tracing of earlier this date and not seen on multiple other prior tracings Electronically Signed On 09-04-2018 13:38:38 EDT by Francis Bowman
--- NOTE | 2018-09-04 15:23 | IPN ---
DATE: 09/04/2018 CARDIOLOGY PROGRESS NOTE SUBJECTIVE: The patient has been up in the room without feeling lightheaded. Has very little incisional discomfort from his pacemaker implant yesterday. Has remained free of any chest discomfort. Feels his breathing has improved. No further episodes of lightheadedness. Remains unaware of his heart action. OBJECTIVE: Pleasant, somewhat simple, barrel-chested, obese, late middle-aged male lying comfortably, virtually flat. Heart rate 80 beats per minute and regular, blood pressure 138/62 supine, respiratory rate 18 per minute, oxygen saturation 98% on room air. Afebrile. Weight 234 pounds, unchanged. No pallor or cyanosis. Normal oral moisture. Trachea midline. Jugular veins did not appear to be elevated. Increased anteroposterior chest diameter with slightly reduced chest expansion. Well-healing left subclavian pacemaker incision without hematoma or swelling. His dressing was changed today. Good air entry over both lung walker with slight prolongation of expiration but no audible wheeze. [place] not palpable. Heart sounds distant. Has ongoing mild distal lower leg pitting. panel monitor: This has shown chiefly atrially paced rhythm at 80 beats per minute with spontaneous, atrioventricular (AV) conduction and left bundle branch block (LBBB) QRS configuration. Chest x-ray: PA and left lateral study performed earlier today was reviewed independently and shows at least borderline cardiomegaly with CT ratio 16.5:32. Normal greater vessels and pulmonary vasculature dual-chamber pulse generator, left subclavian region, with stable right ventricular and right atrial pacing leads. No localized infiltrate or pleural effusion. Blood work: His Troponin I level today was marginally increased from yesterday at 0.21. Has remained free of anginal chest discomfort. Having missed his oral hypoglycemic therapy yesterday and his IV fluid inadvertently not being discontinued despite my request for saline lock yesterday, his fingerstick blood sugars have been elevated at 237 and 239 today. IMPRESSION/PLAN: 1. Paroxysmal atrial fibrillation: He was actually being made an inpatient today because of his recurrent atrial fibrillation with rapid ventricular response yesterday requiring amiodarone and direct-current cardioversion to allow us to proceed with atrial pacing lead implant. With his multiple coronary risk factors and abnormal troponin I, amiodarone is believed to be the safest antiarrhythmic for him. At this point, we have elected to keep him on telemetry for at least 72 hours while we load his amiodarone at 200 mg four times a day. His oral anticoagulation, Eliquis 5 mg twice a day, will restart this evening. Also remains on low-dose metoprolol tartrate 25 mg twice a day. 2. 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 His chest x-ray today confirms stable lead placement. Complete pacemaker interrogation was performed showing excellent intracardiac electrograms and pacing thresholds with anticipated battery longevity of at least 10 years. We did make subtle program change today to encourage pacer longevity. We were able to active ACap confirm function. We have purposely maintained his low pacing rate at 80 beats per minute again to primarily try to overdrive any ectopic activity that might trigger recurrent atrial fibrillation while we are using loading amiodarone therapy. 3. Abnormal EKG/left bundle branch block: As mentioned, despite his multiple coronary risk factors, has never had symptom to suggest angina pectoris. Claims to have had remote stress testing. Troponin I remains in an indeterminate range but slightly increased, likely related to his recurrent atrial fibrillation with rapid ventricular response we dealt with yesterday. Currently remains on protective beta-jaylen, metoprolol, statin therapy, Crestor, and we will be resuming his Eliquis. Followup EKG and troponin I level be obtained tomorrow. 4. Hypertensive heart disease (benign with heart failure)/heart failure (diastolic dysfunction/acute): No current shortness of breath or orthopnea, and his chest x-ray shows no pulmonary venous congestion despite his elevated brain natriuretic peptide (BNP) level yesterday. I suspect this elevation was related to his underlying left ventricular diastolic dysfunction due to his obesity and hypertension aggravated by his loss of atrial kick and rapid ventricular response with his atrial fibrillation. I am cautiously optimistic this will respond to simple measures, including modest salt and fluid intake restriction, continued maintaining a sinus/atrially paced rhythm, and the use of beta jaylen therapy. Diuretic therapy has not been administered. 5. Diabetes mellitus (non-insulin dependent): With stress and temporarily being off his oral anticoagulation, fingerstick blood sugars earlier today have been suboptimal. Has been restarted on a 1600-calorie diabetic diet. His metformin and glipizide have been resumed. Will continue to monitor his fingerstick blood sugars before meals and at bedtime and administer supplemental insulin accordingly. 6. Obstructive sleep apnea: Apparently has been sleeping here without much problem. No documented hypoxia, though he has not been able to wear his continuous positive airway pressure (CPAP) mask. Having difficulty getting his CPAP equipment here in hospital. He will resume this upon his return home, hopefully within a couple of days. We have discussed our plan with the patient who appears to understand and agree.
[2018-09-04 16:00] VITALS: BP 144/65
[2018-09-04 20:00] VITALS: BP 125/61
[2018-09-04] MEDS: ROSUVASTATIN 10 MG TAB (CRESTOR) PO SCH (20:47)
[2018-09-04] MEDS: APIXABAN 5 MG TAB (ELIQUIS) PO SCH (20:48)
[2018-09-04] MEDS: traZODone 100 MG TAB PO SCH (20:48)
[2018-09-04] MEDS: TERAZOSIN 5 MG CAP PO SCH (20:48)
[2018-09-04 23:59] VITALS: BP 123/61
[2018-09-05] VITALS (8 sets, daily range): BP systolic 100–114; BP diastolic 60–80; PULSE 107
[2018-09-05] MEDS ORDERED: AMIODARONE HCL 150 MG in APPROPRIATE DILUENT 1 EA IV STA ×4 (03:13→08:57)
[2018-09-05] MEDS: ALBUTEROL SULFATE 2.5 MG/0.5 ML INH NEB SOLN INH SCH ×4 (04:00→12:05)
[2018-09-05] MEDS: HumaLOG INSULIN (NovoLOG) PER UNIT SC SCH ×4 (07:30→21:00)
[2018-09-05] MEDS: PANTOPRAZOLE 40MG TAB (PROTONIX) PO SCH (08:14)
[2018-09-05] MEDS: DOCUSATE SODIUM 100 MG CAP PO SCH ×2 (08:14→21:55)
[2018-09-05] MEDS: METOPROLOL TART 25 MG TABLET PO SCH ×3 (08:14→17:02)
[2018-09-05] MEDS: metFORMIN (GLUCOPHAGE) 1000 MG TABLET PO SCH ×2 (08:14→17:01)
[2018-09-05] MEDS: AMIODARONE 200 MG TAB (PACERONE) PO SCH ×4 (08:14→22:01)
[2018-09-05] MEDS: LORATADINE 10 MG TAB PO SCH (08:14)
[2018-09-05] MEDS: glipiZIDE (GLUCOTROL) 5 MG TAB PO SCH (08:14)
[2018-09-05] MEDS: APIXABAN 5 MG TAB (ELIQUIS) PO SCH ×2 (08:16→21:56)
--- NOTE | 2018-09-05 10:33 | REP ---
Chest two views HISTORY: Right chest pain Comparison: 09/04/2018 The lungs are clear. The heart is normal in size. The pulmonary vasculature is normal in appearance. The bony structure is intact. A cardiac pacemaker is present. IMPRESSION: No acute disease. Electronically Signed by Steve Murcia MD 09/05/2018 10:25 A
[2018-09-05] MEDS ORDERED: methylPREDNISolone INJ 125 MG/2 ML VIAL (J2930) IV ONE (14:00)
--- NOTE | 2018-09-05 14:33 | ECGEPIP ---
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
--- NOTE | 2018-09-05 14:35 | ECGEPIP ---
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
--- NOTE | 2018-09-05 15:16 | IPN ---
CARDIOLOGY PROGRESS NOTE DATE: 09/05/2018 SUBJECTIVE: Patient developed recurrent atrial fibrillation early this morning despite his amiodarone and metoprolol therapies. Associated with this he describes a vague somewhat pleuritic right-sided chest discomfort. Associated shortness of breath. This afternoon he does not seem to have the same sensation. No additional medications has been given to control his ventricular response atrial fibrillation. No anginal chest pain and no current incisional discomfort. Mild lightheadedness with initial getting up out of bed this morning. OBJECTIVE: Obese barrel-chested late middle-aged male. He still having his dry cough from his recent bronchitis. Current heart rate 88 beats per minute and regular with irregularities. Blood pressure 108/76 supine, 114/72 sitting and 110/68 standing, respiratory rate 20 per minute, O2 saturation 100% on room air. Afebrile. His weight is essentially unchanged. I know record is not accurate demonstrating negative fluid balances with inaccurate fluid intake recordings. No pallor or cyanosis. Normal oral moisture. Trachea midline. Neck veins were difficult to evaluate because of his fat neck. Increased anteroposterior chest diameter with fair air entry over both lung walker with no inspiratory rales. Slight prolongation of expiration but no audible wheeze. Apical impulse and heart sounds as before not palpable and very distant. Still has a soft abdomen but is obese. No sacral pitting but has 1 mm pitting edema one-third up both lower legs. 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 EKG: Serial tracings taken today were reviewed independently and did not show any serial repolarization changes. BLOOD WORK: Troponin I drawn earlier today is down from yesterday to 0.16. Fingerstick blood sugars had showed improved control yesterday but he has been requiring insulin injections. IMPRESSION/PLAN: 1. Recurrent paroxysmal atrial fibrillation: Frustratingly, even with amiodarone, he has had recurrence of his atrial fibrillation which has not responded to even IV supplemental doses of amiodarone. His dosage of metoprolol has been increased to facilitate adequate control of his ventricular rate. Has been restarted on Eliquis yesterday evening. Plan at this point, will be to aim for heart rate control and continue loading of his amiodarone. Once he is on this medication for 2 weeks, we would plan on repeat trial of direct-current cardioversion if he does not convert spontaneously with amiodarone alone. We may tentatively think of discharging him tomorrow on combination amiodarone 2 mg four times a day, metoprolol tartrate 50 mg twice a day, and Eliquis 5 mg twice a day. 2. Shortness of breath: At this point, believed to be remnants of his recent upper respiratory tract infection/viral infection, possibly triggering secondary bacterial bronchitis that was treated with antibiotics. Symptom may be aggravated by a degree of LV diastolic dysfunction with his atrial fibrillation as described above. Repeat chest x-ray today again fails to demonstrate any localized infiltrate or pulmonary venous congestion failure. Our plan is to prescribe an inhaled steroid with ProAir inhaler. I will give him additional dose of IV Solu-Medrol today. 3. Tachy-ethan syndrome/dual-chamber pacemaker in situ: His device is functioning appropriately and despite pacing even at 80 beats per minute (BPM) and being on amiodarone, has returned to atrial fibrillation which has been quite sustained. No current program changes were made today. We will plan on arranging for an office visit in 7 days to check his wound, remove his quita and recheck his rhythm. 4. Abnormal EKG/left bundle branch block: Had some vague right chested pleuritic discomfort earlier today. His troponin actually came down and his EKG does not show any serial ST/T-wave changes. Will continue on protective metoprolol, Crestor, and Eliquis. As mentioned before it may be prudent to consider obtaining an objective definition of his coronary prognosis at some point in the near future. In light of his baseline left bundle branch block a supine, regadenoson Cardiolite heart scan would be necessary. 5. Hypertensive heart disease (benign with heart failure)/heart failure (diastolic dysfunction/acute): As mentioned above, this may be contributing to his effort dyspnea though his chest is clear and his chest x-ray does not show pulmonary venous congestion or interstitial edema. His BNP level was elevated as mentioned. Has distal lower extremity pitting but unfortunately evaluation of his neck vein is hindered by his body habitus. Had an echocardiogram at the [facility] recently that supposedly did not find elevated pulmonary arterial pressure or dilated inferior vena cava to suggest right heart failure. His blood pressure at this point is controlled. We will obtain followup blood chemistry tomorrow. 6. Diabetes mellitus (non-insulin dependent): With his acute stress and recent infection despite his low carbohydrate diet and oral hypoglycemic therapy, supplemental insulin has to be administered to obtain adequate blood sugar control. 7. Obstructive sleep apnea: Apparently, has been sleeping fairly well except for when he developed his atrial fibrillation. No documented hypoxia even without his C-PAP therapy. I have reviewed my tentative plan with the patient and am hoping that he may be still discharged tomorrow morning and followed closely as an outpatient. VERNON
[2018-09-05] MEDS: ALBUTEROL 90 MCG/ACT 8GM HFA INHALER INH SCH ×2 (16:24→20:20)
[2018-09-05] MEDS: FLUTICASONE HFA 220 MCG 12 GM INHALER (FLOVENT) INH SCH (20:20)
[2018-09-05] MEDS: ROSUVASTATIN 10 MG TAB (CRESTOR) PO SCH (21:56)
[2018-09-05] MEDS: traZODone 100 MG TAB PO SCH (21:57)
[2018-09-05] MEDS: TERAZOSIN 5 MG CAP PO SCH (21:58)
[2018-09-06] MEDS: METOPROLOL TART 25 MG TABLET PO SCH ×3 (00:25→12:14)
[2018-09-06 04:00] VITALS: BP 114/60
[2018-09-06 05:44] LABS: BASO % 0.1 % (0.0-1.0); HEMATOCRIT 33.3 % (42.0-52.0); LYMPH # 1.2 10^3/uL (1.5-4.5); LYMPH % 8.2 % (24.0-44.0); MEAN CORPUSCULAR HEMOGLOBIN 28.7 pg (27.0-33.0); MEAN CORPUSCULAR VOLUME 86.9 fl (80.0-96.0); MONO # 0.7 10^3/uL (0.0-0.8); MONO % 4.7 % (0.0-5.0); NEUTROPHILS # 12.1 10^3/uL (1.8-7.7); NEUTROPHILS % 86.6 % (36.0-66.0); PLATELET COUNT, AUTOMATED 264 10^3/uL (150-450); RED BLOOD COUNT 3.83 10^6/uL (4.30-6.10)
[2018-09-06 06:15] LABS: ALBUMIN 3.4 GM/DL (3.2-5.2); ALT/SGPT 27 U/L (12-78); BILIRUBIN,TOTAL 0.5 MG/DL (0.2-1.0); BLOOD UREA NITROGEN 15 MG/DL (7-18); CALCIUM LEVEL 8.5 MG/DL (8.8-10.2); CARBON DIOXIDE LEVEL 29 MEQ/L (21-32); CHLORIDE LEVEL 102 MEQ/L (98-107); CREATININE FOR GFR 0.88 MG/DL (0.70-1.30); GLOMERULAR FILTRATION RATE > 60.0 (>49); GLUCOSE, FASTING 166 MG/DL (70-100); NT-PRO BNP 410 PG/ML (<125); POTASSIUM SERUM 4.7 MEQ/L (3.5-5.1); SODIUM LEVEL 136 MEQ/L (136-145); THYROID STIMULATING HORMONE 0.267 uIU/ML (0.358-3.740); TOTAL PROTEIN 7.1 GM/DL (6.4-8.2)
[2018-09-06] MEDS: ALBUTEROL 90 MCG/ACT 8GM HFA INHALER INH SCH (07:46)
[2018-09-06] MEDS: FLUTICASONE HFA 220 MCG 12 GM INHALER (FLOVENT) INH SCH (07:46)
[2018-09-06 08:00] VITALS: BP 128/60
[2018-09-06] MEDS ORDERED: PACE200T PO (08:15)
[2018-09-06] MEDS ORDERED: METO50TA7 PO (08:15)
[2018-09-06] MEDS: LORATADINE 10 MG TAB PO SCH (08:44)
[2018-09-06] MEDS: PANTOPRAZOLE 40MG TAB (PROTONIX) PO SCH (08:44)
[2018-09-06] MEDS: AMIODARONE 200 MG TAB (PACERONE) PO SCH ×2 (08:44→12:11)
[2018-09-06] MEDS: APIXABAN 5 MG TAB (ELIQUIS) PO SCH (08:45)
[2018-09-06] MEDS: metFORMIN (GLUCOPHAGE) 1000 MG TABLET PO SCH (08:45)
[2018-09-06] MEDS: HumaLOG INSULIN (NovoLOG) PER UNIT SC SCH ×2 (08:45→12:00)
[2018-09-06] MEDS: glipiZIDE (GLUCOTROL) 5 MG TAB PO SCH (08:45)
[2018-09-06] MEDS: DOCUSATE SODIUM 100 MG CAP PO SCH (08:45)
[2018-09-06 12:14] VITALS: BP 120/70
--- NOTE | 2018-09-06 19:15 | DSES ---
DATE OF ADMISSION: 09/03/2018 DATE OF DISCHARGE: 09/06/2018 DISCHARGE SUMMARY ATTENDING PHYSICIAN: Dr. Jonh Chadwick PRIMARY CARE PHYSICIAN: Dr. Pacheco, [facility], [place], [place]. CLINICAL SUMMARY: This 67-year-old , resident of [place] with multiple medical problems including obesity, hypertension, type 2 diabetes mellitus and depression, describes a recent problem with influenza and subsequent purulent bronchitis. Associated with this condition, he has been experiencing episodes of paroxysmal atrial fibrillation with somewhat rapid ventricular responses. He has presented to three separate medical facilities, the last the [facility] in [place]. His atrial fibrillation was documented as being as rapid as 150 beats per minute. Unfortunately he was also documented to have intermittent pauses leading to his discharge August 25, 2018 on only low dose metoprolol 25 mg twice a day with Eliquis 5 mg twice a day. He presented to our emergency room September 03, 2018 with recurrent episodes of near syncope and marked dyspnea, shown in the emergency room to be associated with episodes of asystolic pauses with conversion of his atrial fibrillation to sinus mechanism. Unfortunately these conversions were very brief but the pauses were very symptomatic and more recurrent. My cardiology service was requested. Please see my emergency room cardiology consultation dictation for further details. INVESTIGATION AND COURSE IN HOSPITAL: In light of his tachy-ethan syndrome with monitor in the emergency room demonstrating atrial fibrillation with somewhat rapid ventricular responses alternating with asystolic pauses of 4-5 seconds, we arranged for implantation of permanent dual-chamber pacemaker under monitored local anesthesia later the same evening. His intraoperative course was eventful in light of his recurrent atrial fibrillation with somewhat rapid ventricular responses. A permanent dual- chamber pacing system was implanted ([employer] - Assurity MRI compatible, model number [id number]) but in order to place his atrial lead, we had to administer amiodarone IV and administer two direct current cardioversions. We had intended to discharge him the following day; however, on low dose metoprolol and amiodarone loading therapy, he continued to have recurrent atrial fibrillation with rapid ventricular response. He was admitted and given additional amiodarone IV with his oral loading therapy. His metoprolol beta-jaylen dosage was also increased. His Eliquis was resumed. Finally, on September 05, 2018, we will be able to establish a sustained atrially paced rhythm at 80 beats per minute and the patient was discharged home today. LABORATORY DATA: Admission hemoglobin was 13.9 and this drifted to 11. Admission white blood cell count was 9.2 and this increased to 14 following administration of Solu-Medrol IV for ongoing irritating cough and wheezing. His platelet count remained normal. His chemistry remained in balance with normal BUN and creatinine; this morning, BUN 15, creatinine 0.88. His fasting glucose this morning was 166. His pro BNP level on admission was elevated at 748; this had decreased to 410 this morning. Ultrasensitive TSH on admission was normal at 0.557 but followup study done this morning following the initiation of amiodarone showed a drop in his TSH to 0.27. He was free of symptomatic hyperthyroidism. His CPK on admission was normal, but Troponin I was indeterminate at 0.07. With his bouts of rapid atrial fibrillation, this level did increase to a maximum of 0.21, but decreased to 0.16 yesterday. His admission portable upright chest x-ray showed heart size upper limits of normal with normal greater vessels and clear lung walker. Postoperative chest x-rays showed good lead placement with no pneumothorax. A repeat chest x-ray was taken September 05, 2018 because of vague right-sided pleuritic chest pain and this showed no change. In particular, no pneumothorax. His lung walker were clear. No infiltrate or pleural effusion. Serial EKG showed atrial fibrillation on admission. Postoperative EKG showed atrially paced rhythm at 80 beats per minute with his left bundle branch block. Subsequent EKG the next morning showed atrial fibrillation with somewhat rapid ventricular response as did tracings later the same day. However, his last EKG earlier today shows consistent atrially paced rhythm at 80 beats per minute (bpm) with his left bundle branch block. With combination bronchodilator therapy and Solu-Medrol bolus, his cough did improve. He was ambulating in the harper and feeling well. Final vital signs today showed a heart rate of 80 beats per minute, blood pressure 120/70. Afebrile. Weight 234 pounds, oxygen saturation 99% on room air. FINAL DIAGNOSES: 1. Tachy-ethan syndrome/dual-chamber pacemaker in situ. 2. Paroxysmal atrial fibrillation with rapid ventricular response. 3. Heart failure (diastolic dysfunction/acute on chronic). Currently compensated with control of his atrial tachyarrhythmia. 4. Abnormal EKG/left bundle branch block. 5. Hypertensive heart disease (benign with heart failure). DISCHARGE MEDICATIONS AND RECOMMENDATIONS: The patient was encouraged to follow a modest salt and caloric restricted diet, and particularly low-carbohydrate with his diabetes mellitus. He was requested to perform only light activities of daily living with his left arm until his pacemaker incision quita were removed. He was also requested to keep his incision dry for the time being. Medications will include: -Amiodarone 200 mg by mouth four times a day for the next 10 days, then 200 mg three times a day for one month, then 200 mg twice a day for the next month, and hopefully ultimately 200 mg daily. -Metoprolol 50 mg by mouth twice a day -Eliquis 5 mg twice a day -Crestor 40 mg daily -terazosin 5 mg nightly -metformin 1 gram by mouth twice a day -glipizide 5 mg daily -loratadine 10 mg daily -omeprazole 20 mg daily -trazodone 100 mg nightly -Urea 39% cream topically twice a day as needed dry skin -vitamin D 50,000 units by mouth every 2 weeks -clobetasol cream topically twice a day as needed for rash/itching -bacitracin ointment topically daily -Naprosyn 500 mg by mouth twice a day as needed for pain -Dulce-3 fatty acids 1 gram capsules two nightly. His low dose aspirin, hydrochlorothiazide, lisinopril and low dose metoprolol tartrate were discontinued. He was given a followup appointment in my office for September 13, 2018 at 2:00 p.m. for clinic visit on his amiodarone, wound check and staple removal. I have spoken with Dr. Pacheco, [facility], personally regarding the patient's course in hospital, and he will be arranging followup as well. VERNON
--- NOTE | 2018-09-08 00:35 | ECGEPIP ---
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
== END 2018-09-06 12:22 | disposition home or self-care (01) | DRG 242 ==
LOC: M ED 14:43 → EDBD 14:43 → M SDC 18:00 → M PCU 21:44 → M SDC 09-06 12:22
PROVIDERS: ADMIT Internal Medicine Cardiovascular Disease; ATTEND Internal Medicine Cardiovascular Disease
PROC: 02HK3JZ Insertion of Pacemaker Lead into Right Ventricle, Percutaneous Approach (ICD-10-PCS; 2018-09-03)
PROC: 02H63JZ Insertion of Pacemaker Lead into Right Atrium, Percutaneous Approach (ICD-10-PCS; 2018-09-03)
PROC: 5A2204Z Restoration of Cardiac Rhythm, Single (ICD-10-PCS; 2018-09-03)
PROC: 0JH606Z Insertion of Pacemaker, Dual Chamber into Chest Subcutaneous Tissue and Fascia, Open Approach (ICD-10-PCS; principal; 2018-09-03 16:39)
DX: I49.5 Sick sinus syndrome (principal); I50.33 Acute on chronic diastolic (congestive) heart failure; Z68.41 Body mass index [BMI] 40.0-44.9, adult; I48.0 Paroxysmal atrial fibrillation; I44.7 Left bundle-branch block, unspecified; I11.0 Hypertensive heart disease with heart failure; E66.9 Obesity, unspecified; K21.9 Gastro-esophageal reflux disease without esophagitis; G47.33 Obstructive sleep apnea (adult) (pediatric); E11.9 Type 2 diabetes mellitus without complications; F32.9 Major depressive disorder, single episode, unspecified; E73.9 Lactose intolerance, unspecified; Z79.01 Long term (current) use of anticoagulants; Z79.899 Other long term (current) drug therapy; Z79.84 Long term (current) use of oral hypoglycemic drugs

== ENCOUNTER 2019-06-23 15:19 | Emergency (ER) | payer MEDICARE, OTHER ==
[~2019-06-23] VITALS: Ht 162.6 cm; Wt 100.0 kg
[~2019-06-23 15:19] MED LIST changes: -ASPI1TAB PO; +ASPI81TA26 PO; +BACI50OI TOP; +CLOB5CR TOP; +CRES40TA PO; +FISH7.5C PO; +METO25TA4 PO; +METO50TA7 PO; +OMEP-172 PO; -OMEP20CA3 PO; +PACE200T PO; -ROSU40TA3 PO; +ROSU40TA4 PO; +UREA39CR TOP; +VITA50005 PO
[2019-06-23 18:20] VITALS: BP 121/56
== END 2019-06-23 18:15 | disposition home or self-care (01) ==
LOC: M ED 15:19
DX: R51 Headache (principal); Z77.098 Contact with and (suspected) exposure to other hazardous, chiefly nonmedicinal, chemicals; I10 Essential (primary) hypertension; E11.9 Type 2 diabetes mellitus without complications; E78.00 Pure hypercholesterolemia, unspecified; F33.9 Major depressive disorder, recurrent, unspecified; G47.30 Sleep apnea, unspecified; K21.9 Gastro-esophageal reflux disease without esophagitis; Z99.89 Dependence on other enabling machines and devices; Z79.899 Other long term (current) drug therapy; Z79.84 Long term (current) use of oral hypoglycemic drugs

== ENCOUNTER 2020-12-28 16:16 | Emergency (ER) | payer OTHER, MEDICARE ==
[~2020-12-28] VITALS: Ht 162.6 cm; Wt 95.9 kg
[~2020-12-28 16:16] MED LIST changes: -DOXY100C37 PO; +DOXY1CAP62 PO; +EQ A1CRE3 TOP; +HYDR-3490 PO; -HYDR25TAB PO; -LISI-542 PO; +LISI-898 PO; -OMEP-172 PO; +OMEP1CAP73 PO; -TERB1CRE12 TOP; -TRAZ-163 PO; +TRAZ-257 PO
--- NOTE | 2020-12-28 19:52 | REP ---
INDICATION: injury COMPARISON: None. TECHNIQUE: AP and frog-lateral views of the left hip FINDINGS: Generalized age-related changes include subtle increased sclerosis to the acetabulum with minimal joint space narrowing. No further overt osteoarthritic or significant degenerative changes are appreciated. No evidence for acute or healed injury. Surrounding soft tissues are normal. IMPRESSION: Mild generalized arthritic changes. No acute fracture or dislocation. <Electronically signed by Toby Del Valle > 12/28/201947
[2020-12-28 20:07] VITALS: BP 125/60
== END 2020-12-28 20:11 | disposition home or self-care (01) ==
LOC: M ED 16:16
DX: S70.02XA Contusion of left hip, initial encounter (principal); V00.838A Other accident with motorized mobility scooter, initial encounter; I10 Essential (primary) hypertension; E11.9 Type 2 diabetes mellitus without complications; R51.9 Headache, unspecified; F33.9 Major depressive disorder, recurrent, unspecified; K21.9 Gastro-esophageal reflux disease without esophagitis; G47.33 Obstructive sleep apnea (adult) (pediatric); Z79.899 Other long term (current) drug therapy

== ENCOUNTER 2021-03-16 08:41 | Emergency (ER) | payer OTHER ==
[~2021-03-16] VITALS: Ht 162.6 cm; Wt 92.4 kg
[~2021-03-16 08:41] MED LIST changes: +ANEC4CRE3 TOP; +BIOF4GEL4 TOP; +CELE1CAP9 PO; +METH-1164 PO
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
[2021-03-16] MEDS ORDERED: ACETAMINOPHEN 500 MG TAB PO ONE (11:30)
--- NOTE | 2021-03-16 12:05 | REP ---
INDICATION: pain over sacroiliac, lumbar spine doen r leg. COMPARISON: None. TECHNIQUE: 4 mm thick axial projection images were obtained of the lumbar spine. 2D sagittal and coronal reconstructions were performed. FINDINGS: There is mild levoscoliosis of the thoracolumbar spine. There are no compression fractures. There is no spondylolisthesis. At the L3-4 level, there is a broad-based central disc protrusion. There is bilateral facet arthropathy, with ligamentum flavum hypertrophy measuring 4 mm in thickness. There is compression of the thecal sac. There is mild lateral recess stenosis bilaterally. There is no foraminal narrowing. At the L4-5 level, there is a broad-based central disc protrusion. There is bilateral facet arthropathy with ligamentum flavum hypertrophy measuring 5 mm in thickness. There is compression of the thecal sac. There is moderate lateral recess stenosis bilaterally. There is no foraminal narrowing. At the L5-S1 level there is bilateral facet arthropathy and ligamentum flavum hypertrophy. There is no central canal stenosis. There is mild lateral recess stenosis bilaterally. There is mild arthritis of both SI joints. There is calcific vascular disease of the abdominal aorta. IMPRESSION: 1. There is degenerative disc disease, L3-4 and L4-5 with broad-based central disc protrusions. There is mild compression of the thecal sac at both levels. 2. There is bilateral facet arthropathy and ligamentum flavum hypertrophy, L3-4 through L5-S1. There is bilateral lateral recess stenosis, at all 3 levels as described. 3. Other findings as noted. <Electronically signed by Nehemiah Silveira > 03/16/21 [id number]
[2021-03-16 13:13] VITALS: BP 121/56
--- NOTE | 2021-03-18 15:08 | ED PDOC ---
Post-Departure Follow-Up radiology report faxed to Kerri Espinosa MD Mar 18, 2021 15:08
== END 2021-03-16 13:24 | disposition home or self-care (01) ==
LOC: M ED 08:41
DX: M25.551 Pain in right hip (principal); M51.26 Other intervertebral disc displacement, lumbar region; M51.36 Other intervertebral disc degeneration, lumbar region; M48.061 Spinal stenosis, lumbar region without neurogenic claudication; G95.20 Unspecified cord compression; E11.9 Type 2 diabetes mellitus without complications; I10 Essential (primary) hypertension; E78.5 Hyperlipidemia, unspecified; K21.9 Gastro-esophageal reflux disease without esophagitis; Z79.899 Other long term (current) drug therapy

== ENCOUNTER → 2021-04-27 | Outpatient (CLI) | payer MEDICARE, OTHER ==
[~2021-04-27] MED LIST changes: +DOXY-443 PO; -DOXY1CAP62 PO; -LISI-898 PO; +LISI5TAB11 PO
== END ==
LOC: M RAD 09:23
PROVIDERS: ATTEND Orthopaedic Surgery
DX: Z95.0 Presence of cardiac pacemaker (principal)

== ENCOUNTER 2022-06-23 14:00 | Emergency (ER) | payer MEDICARE, OTHER ==
[~2022-06-23] VITALS: Ht 162.6 cm; Wt 93.2 kg
[~2022-06-23 14:00] MED LIST changes: +FISH10005 PO; -FISH7.5C PO
[2022-06-23] MEDS ORDERED: LIDOCAINE 5% (LIDODERM) PATCH TD ONE (15:25)
[2022-06-23] MEDS ORDERED: ACETAMINOPHEN 500 MG TAB PO ONE (15:25)
[2022-06-23] MEDS ORDERED: ASPE4PAD TOP (16:49)
[2022-06-23] MEDS ORDERED: METH-1165 PO (16:49)
[2022-06-23 17:02] VITALS: BP 125/60
== END 2022-06-23 17:00 | disposition home or self-care (01) ==
LOC: M ED 14:00
DX: M25.512 Pain in left shoulder (principal); E11.9 Type 2 diabetes mellitus without complications; I10 Essential (primary) hypertension; E78.5 Hyperlipidemia, unspecified; Z79.84 Long term (current) use of oral hypoglycemic drugs; Z79.899 Other long term (current) drug therapy

== ENCOUNTER 2022-07-16 12:16 | Outpatient (RCR) | payer MEDICARE, OTHER ==
[~2022-07-16 12:16] MED LIST changes: +ASPE4PAD TOP; +METH-1165 PO
== END 2022-07-22 ==
LOC: M PT 12:16
PROVIDERS: ATTEND Orthopaedic Surgery
DX: M25.512 Pain in left shoulder (principal)

== ENCOUNTER → 2022-08-19 | Outpatient (RCR) | payer MEDICARE, OTHER | LOC: M PT 07-24 09:41 | PROVIDERS: ATTEND Orthopaedic Surgery | DX: M25.512 Pain in left shoulder (principal) ==

== ENCOUNTER 2022-09-09 13:23 | Outpatient (RCR) | payer MEDICARE, OTHER | END 2022-09-19 | LOC: M PT 13:23 | PROVIDERS: ATTEND Orthopaedic Surgery | DX: M25.512 Pain in left shoulder (principal) ==

== ENCOUNTER 2024-08-31 18:14 | Emergency (ER) | payer OTHER, MEDICARE, MEDICAID ==
[~2024-08-31] VITALS: Ht 162.6 cm; Wt 94.1 kg
[~2024-08-31 18:14] MED LIST changes: +CELE0.09 PO; -CELE1CAP9 PO; +DICY-61 PO; -DICY10CA13 PO; +DOXY-441 PO; -DOXY-443 PO; +ELIQ5TAB PO; +ERGO500029 PO; +GLIP5TAB17 PO; -GLIP5TAB8 PO; +METF-839 PO; -ROSU40TA4 PO; +ROSU40TA81 PO; +TORS10TA3 PO; +TRAM50TA2 PO
[2024-08-31 18:58] LABS: BASO # 0.1 10^3/uL (0.0-0.2); BASO % 0.7 % (0.0-1.0); EOS # 0.1 10^3/uL (0.0-0.5); EOS % 1.7 % (0.0-3.0); HEMATOCRIT 36.7 % (42.0-52.0); HEMOGLOBIN 12.7 g/dl (13.5-17.5); LYMPH # 2.1 10^3/uL (1.5-5.0); LYMPH % 25.5 % (24.0-44.0); MEAN CORPUSCULAR HEMOGLOBIN 30.2 pg (27.0-33.0); MEAN CORPUSCULAR HGB CONC 34.6 g/dl (32.0-36.5); MEAN CORPUSCULAR VOLUME 87.4 fl (80.0-96.0); MONO # 0.8 10^3/uL (0.0-0.8); MONO % 9.4 % (2.0-8.0); NEUTROPHILS # 5.2 10^3/uL (1.5-8.5); NEUTROPHILS % 62.3 % (36.0-66.0); PLATELET COUNT, AUTOMATED 187 10^3/uL (150-450); WHITE BLOOD COUNT 8.4 10^3/uL (4.0-10.0)
[2024-08-31 19:11] LABS: INR 1.05; PARTIAL THROMBOPLASTIN TIME 36.2 SECONDS (24.8-34.2); PROTHROMBIN TIME 14.1 SECONDS (12.5-14.5)
[2024-08-31 19:17] LABS: CK-MB VALUE MASS 2.1 NG/ML (<3.6); LIPASE 56 U/L (12-53)
[2024-08-31 19:19] LABS: ALBUMIN 3.6 G/DL (3.2-5.2); ALKALINE PHOSPHATASE 150 U/L (40-129); ALT/SGPT 21 U/L (7.0-40); AST/SGOT 19 U/L (<34); BILIRUBIN,DIRECT < 0.1 MG/DL (<0.4); BILIRUBIN,TOTAL 0.4 MG/DL (0.3-1.2); BLOOD UREA NITROGEN 12 MG/DL (9-23); CALCIUM LEVEL 8.3 MG/DL (8.3-10.6); CARBON DIOXIDE LEVEL 24 MMOL/L (20-31); CHLORIDE LEVEL 105 MMOL/L (98-107); GLOMERULAR FILTRATION RATE > 60.0 (>42); GLUCOSE, FASTING 213 MG/DL (74-106); SODIUM LEVEL 140 MMOL/L (136-145); TOTAL PROTEIN 7.1 G/DL (5.7-8.2)
[2024-08-31 19:21] LABS: CPK CREATINE PHOSPHOKINASE 125 U/L (46-171); FREE T4 1.23 NG/DL (0.89-1.76); MB/CK RELATIVE INDEX 1.68 (< OR =4); THYROID STIMULATING HORMONE 1.521 uIU/ML (0.55-4.78)
[2024-08-31] MEDS ORDERED: ISOVUE-370 76% 100ML VIAL As Ordered ONE (19:35)
[2024-08-31 20:25] LABS: CK-MB VALUE MASS 1.9 NG/ML (<3.6)
[2024-08-31 20:27] LABS: MB/CK RELATIVE INDEX 1.65 (< OR =4)
[2024-08-31 21:52] LABS: HEMATOCRIT 35.3 % (42.0-52.0); HEMOGLOBIN 12.3 g/dl (13.5-17.5)
[2024-08-31 21:57] LABS: KETONE, URINE AUTO RFX NEGATIVE (NEGATIVE); LEUKOCYTE ESTERASE UR AUTO RFX NEGATIVE (NEGATIVE); MUCUS, URINE RFX SMALL (NEGATIVE); NITRITE, URINE AUTO RFX NEGATIVE (NEGATIVE); RBC, URINE AUTO RFX 2 /HPF (0-3); SQUAM EPITHELIAL CELL UR AURFX 0 /HPF (0-6); WBC, URINE AUTO RFX 1 /HPF (0-3)
[2024-08-31 22:32] LABS: CK-MB VALUE MASS 1.2 NG/ML (<3.6)
[2024-08-31 22:34] LABS: MB/CK RELATIVE INDEX 1.08 (< OR =4)
[2024-08-31 23:06] VITALS: BP 133/64; TEMP 97.1; O2SAT 98
== END 2024-08-31 23:19 | disposition home or self-care (01) ==
LOC: M ED 18:14
DX: R91.1 Solitary pulmonary nodule (principal); R07.9 Chest pain, unspecified; I95.1 Orthostatic hypotension; I48.91 Unspecified atrial fibrillation; E11.9 Type 2 diabetes mellitus without complications; I10 Essential (primary) hypertension; E78.5 Hyperlipidemia, unspecified; K21.9 Gastro-esophageal reflux disease without esophagitis; F32.A Depression, unspecified; Z79.01 Long term (current) use of anticoagulants; Z79.2 Long term (current) use of antibiotics; Z79.84 Long term (current) use of oral hypoglycemic drugs; Z79.899 Other long term (current) drug therapy
CPT/HCPCS: 71045; 71275; 74177; 80048; 80076; 81001; 82550; 82553; 83690; 83880; 84439; 84443; 84484; 85014; 85018; 85025; 85610; 85730; 86850; 86900; 86901; 87486; 87581; 87633; 87798; 93005; 93041; 94760; 99285; Q9967

== ENCOUNTER 2024-11-03 07:54 | Emergency (ER) | payer MEDICARE, MEDICAID ==
[~2024-11-03] VITALS: Ht 165.1 cm; Wt 93.2 kg
[2024-11-03] MEDS: ALBUTEROL 90 MCG/ACT 8GM HFA INHALER INH ONE (09:05)
[2024-11-03] MEDS ORDERED: ALBU8.5H INH (10:42)
[2024-11-03 10:52] VITALS: BP 129/64; TEMP 98.9; O2SAT 97
== END 2024-11-03 10:55 | disposition home or self-care (01) ==
LOC: M ED 07:54 → EDBD 07:54 → M ED 10:55
DX: J68.8 Other respiratory conditions due to chemicals, gases, fumes and vapors (principal); I48.91 Unspecified atrial fibrillation; I25.119 Atherosclerotic heart disease of native coronary artery with unspecified angina pectoris; E11.9 Type 2 diabetes mellitus without complications; I10 Essential (primary) hypertension; E78.5 Hyperlipidemia, unspecified; J44.9 Chronic obstructive pulmonary disease, unspecified; Z88.0 Allergy status to penicillin; Z79.51 Long term (current) use of inhaled steroids; Z79.01 Long term (current) use of anticoagulants; Z79.84 Long term (current) use of oral hypoglycemic drugs; Z79.899 Other long term (current) drug therapy